=== PATIENT | female | born 1975 | race Caucasian/White ===

== ENCOUNTER 2017-08-28 22:52 | Emergency (ER) | END 2017-08-29 02:09 | disposition left against medical advice (07) ==

== ENCOUNTER 2018-12-05 18:47 | Emergency (ER) | payer OTHER ==
[~2018-12-05] VITALS: Ht 167.6 cm; Wt 84.1 kg
[~2018-12-05 18:47] MED LIST: ALBU8.5H8 INH; BACTDS PO; CEPH-443 PO; CIPR500T4 PO; HYDR-3498 PO; IPRA3AMP29 INHALATION; ONDA4TAB35 PO; PHEN-538 PO; PRED20TA PO
[2018-12-05 18:55] VITALS: Ht 167.6 cm; Wt 84.1 kg
--- NOTE | 2018-12-05 19:53 | ERD ---
ER Documentation Chief Complaint Chief Complaint L sided OSHEA x 2weeks, no Neuro deficits HPI 43-year-old female, previously healthy, presents the emergency department, complaining of headache for 1 week. The headache is described as throbbing, worse in the left temporoparietal area, associated with nausea and blurred vision. The patient reports a history of 2 subdural hematomas more than 10 years ago due to trauma. Currently, she denies fever, chills, rashes, no distal weakness, numbness or tingling. ROS All systems reviewed and are negative except as per history of present illness. Medications Home Meds Active Scripts Ibuprofen* (Motrin*) 400 Mg Tab, 400 MG PO Q8, #20 TAB Prov:SHANTI HE MD 12/05/18 Metoclopramide* (Reglan*) 10 Mg Tablet, 10 MG PO BID PRN for NAUSEA AND/OR VOMITING, #10 TAB Prov:SHANTI HE MD 12/05/18 Djxefvgrodsqs-Wajmordhmh-Axcysnql-Codeine* (Fioricet w/Codeine*) 325MG-50MG -40MG-30MG Cap, 1 CAP PO BID PRN for PAIN LEVEL 1-5, #10 CAP Prov:SHANTI HE MD 12/05/18 Phenazopyridine Hcl* (Pyridium*) 200 Mg Tab, 200 MG PO TID PRN for DYSURIA, #6 TAB Prov:VALENCIA HAMPTON NP 07/21/15 Ondansetron Hcl* (Zofran* ODT) 4 mg -ODT Tab.disper, 4 MG PO Q8 PRN for NAUSEA AND/OR VOMITING, #30 TAB Prov:VALENCIA HAMPTON NP 07/21/15 Ciprofloxacin Hcl* (Ciprofloxacin Hcl*) 500 Mg Tablet, 500 MG PO BID for 10 Days, TAB Prov:VALENCIA HAMPTON NP 07/21/15 Hydrocodone Bit-Acetaminophen* ([place]*) 5-325 Mg Tab, 1 TAB PO Q6 PRN for PAIN, #20 TAB Prov:VALENCIA HAMPTON NP 07/21/15 Prednisone* (Prednisone*) 20 Mg Tab, 60 MG PO DAILY for 4 Days, TAB Prov:HOUSTON SULLIVAN MD 06/27/15 Albuterol Sulfate* (Proair HFA*) 8.5 Gm Hfa.aer.ad, 2 PUFF INH Q4H PRN for WHEEZING AND SOB, #1 INHALER Prov:HOUSTON SULLIVAN MD 06/27/15 Cephalexin* (Keflex*) 500 Mg Capsule, 500 MG PO QID for 10 Days, CAP Prov:EMMETT MCKINNEY PA-C 12/21/14 Sulfamethoxazole-Trimethoprim* (Bactrim* DS) 800-160 Mg Tab, 1 TAB PO BID for 10 Days, TAB Prov:EMMETT MCKINNEY PA-C 12/21/14 Reported Medications Ipratropium-Albuterol (Ipratropium-Albuterol) 0.5-3 Mg/3 Ml Ampul.neb, 3 ML INHALATION Q6, #30 VIAL 06/27/15 Albuterol Sulfate* (Proair HFA*) 8.5 Gm Hfa.aer.ad, 2 PUFF INH Q4, #1 INHALER 06/27/15 Allergies Allergies: Coded Allergies: avocado (Verified Allergy, Unknown, rash, 12/05/18) coconut (Verified Allergy, Unknown, rash, 12/05/18) PMhx/Soc History of Surgery: No Anesthesia Reaction: No Hx Neurological Disorder: No Hx Respiratory Disorders: Yes (asthma) Hx Psychiatric Problems: No Hx Miscellaneous Medical Probl: No Hx Alcohol Use: No Hx Substance Use: No Hx Tobacco Use: No FmHx Family History: No diabetes, No coronary disease Physical Exam Vitals Vital Signs Date Temp Pulse Resp B/P (MAP) Pulse Ox O2 O2 Flow FiO2 Time Delivery Rate 12/05/18 98.3 65 18 121/60 96 18:55 (80) Physical Exam Const: No acute distress Head: Atraumatic Eyes: Normal Conjunctiva ENT: Normal External Ears, Nose and Mouth. Neck: Full range of motion. No meningismus. Resp: Clear to auscultation bilaterally Cardio: Regular rate and rhythm, no murmurs Abd: Soft, non tender, non distended. Normal bowel sounds Skin: No petechiae or rashes Back: No midline or flank tenderness Ext: No cyanosis, or edema Neur: Awake and alert Psych: Normal Mood and Affect Result Diagram: 12/05/18202012/05/182020 Results 24 hrs Laboratory Tests Test 12/05/18 20:21 12/05/18 20:25 12/05/18 20:27 White Blood Count 8.6 10^3/ul Red Blood Count 4.25 10^6/ul Hemoglobin 13.3 g/dl Hematocrit 39.2 % Mean Corpuscular Volume 92.2 fl Mean Corpuscular Hemoglobin 31.3 pg Mean Corpuscular 33.9 g/dl Hemoglobin Concent Red Cell Distribution Width 12.2 % Platelet Count 397 10^3/UL Mean Platelet Volume 9.0 fl Immature Granulocytes % 1.400 % Neutrophils % 59.1 % Lymphocytes % 28.4 % Monocytes % 6.5 % Eosinophils % 4.0 % Basophils % 0.6 % Nucleated Red Blood Cells % 0.0 /100WBC Immature Granulocytes # 0.120 10^3/ul Neutrophils # 5.1 10^3/ul Lymphocytes # 2.4 10^3/ul Monocytes # 0.6 10^3/ul Eosinophils # 0.3 10^3/ul Basophils # 0.1 10^3/ul Nucleated Red Blood Cells # 0.0 10^3/ul Sodium Level 142 mmol/L Potassium Level 3.7 mmol/L Chloride Level 107 mmol/L Carbon Dioxide Level 25 mmol/L Anion Gap 10 Blood Urea Nitrogen 14 mg/dl Creatinine 0.74 mg/dl Est Glomerular Filtrat Rate mL/min > 60 mL/min Glucose Level 103 mg/dl Calcium Level 8.9 mg/dl Bedside Urine pH (LAB) 7.0 Bedside Urine Protein (LAB) 1+ Bedside Urine Glucose (UA) Negative Bedside Urine Ketones (LAB) Negative Bedside Urine Blood Trace-intact Bedside Urine Nitrite (LAB) Negative Bedside Urine Leukocyte Esterase Trace (L POC Beta HCG, Qualitative NEGATIVE Current Medications Medications Dose Sig/Kaila Start Time Status Last (Trade) Ordered Route PRN Stop Time Admin Dose Reason Admin Ketorolac 15 mg ONCE STAT 12/05/18 DC 12/05/18 Tromethamine IM 20:11 20:31 (Toradol) 12/05/18 20:28 Ondansetron 4 mg ONCE STAT 12/05/18 DC 12/05/18 HCl (Zofran ODT 20:11 20:31 Odt) 12/05/18 20:28 Procedures/MDM Vital signs stable, Physical exam unremarkable, neurovascular exam intact. Differential diagnosis include but not limited to: Classical migraine, sinusitis, visual corrective problems, side effects of medications, dehydration, electrolyte imbalance, endocrine/autoimmune medical condition, stress, anxiety, tension headache. Low suspicion for meningitis, MOTORIZED [employer]GE[employer] tumor, cerebrovascular event. Physical examination and clinical presentation consistent most likely with tension headache. During the ED course the patient remained stable, no new complaints. The patient received treatment with Toradol IM presenting overall improvement of the symptoms. Results and clinical impression discussed with patient who agrees with kell painter. The patient is stable to be treated outpatient and will be discharged home, some side effects of prescribed medications (headache, rash, nausea, vomiting, diarrhea, drowsiness, habituation, bleeding, hypertension, interactions with other medications) were reviewed. Follow up with the primary care provider in the next 48h has been recommended. If symptoms persist, worsen or new symptoms develop, then patient should return to the ED immediately. Instructions explained and given directly by me to the patient with acknowledgment and demonstrated understanding. Disclaimer: Inadvertent spelling and grammatical errors are likely due to EHR/dictation software use and do not reflect on the overall quality of patient care. Also, please note that the electronic time recorded on this note does not necessarily reflect the actual time of the patient encounter. Departure Diagnosis: Primary Impression: Tension headache Condition: Stable Additional Instructions: Muchas garrett por [facility] para yu servicio. Esperamos que en yu visita a la francisco j de emergencia yu problema medico haya sido solucionado y que se sienta mucho mejor. Para estar seguros que yu mejoria sigue en proceso, le pedimos el favor de hacer yomaira oxana de seguimiento medico con yu doctor primario en los proximos 2-4 mclean. Lleve con usted estos documentos y las medicinas recetadas. Si fabian sintomas empeoran, NO SE ESPERE, por favor regrese a francisco j de emergencia INMEDIATAMENTE. En armaan que usted no tenga un mdico de atencin primaria: Llame al mdico o clnica comunitaria de referencia que aparece abajo jacqueline las horas de consultorio para hacer yomaira oxana para que le vean. CLINICAS: [facility] [phone] [facility] [id number] [facility] [phone] [place] [id number] [phone] [place] [id number] [phone] [facility]. [phone] SHANTI ADKINS MD Dec 05, 2018 19:52
[2018-12-05] MEDS ORDERED: ONDANSETRON (ODT) 4 MG TAB ODT STA (20:11)
[2018-12-05] MEDS ORDERED: KETOROLAC 60 MG INJ IM STA (20:11)
[2018-12-05] MEDS ORDERED: ABCC1C PO (20:43)
[2018-12-05] MEDS ORDERED: IBUP-1561 PO (20:43)
[2018-12-05] MEDS ORDERED: METO10TA92 PO (20:43)
[2018-12-05 21:24] VITALS: BP 117/70; PULSE 60; RESP 18
== END 2018-12-05 21:25 | disposition home or self-care (01) ==
LOC: FTE 18:47
DX: G44.209 Tension-type headache, unspecified, not intractable (principal); J45.909 Unspecified asthma, uncomplicated
CPT/HCPCS: 70450; 80048; 81003; 81025; 85025; 96372; J1885; Z7502; Z7610